=== PATIENT | male | born 1985 | race Caucasian/White ===

== ENCOUNTER 2018-10-28 08:34 | Day surgery (SDC) | payer OTHER ==
[~2018-10-28] VITALS: Ht 195.6 cm; Wt 190.5 kg
[2018-10-28] MEDS ORDERED: WATER FOR IRRIGATION,STERILE 1,000 ML IRRIG.SOLN IR ONE (10:45)
[2018-10-28] MEDS ORDERED: SEVOFLURANE 15 MIN GAS INH ONE (10:45)
[2018-10-28] MEDS ORDERED: LIDOCAINE/EPI 1% 1:100000 20 ML VIAL INJ ONE (10:45)
[2018-10-28] MEDS ORDERED: ROCURONIUM BROMIDE 10 MG/ML (ZEMURON) IV ONE (10:45)
[2018-10-28] MEDS ORDERED: MIDAZOLAM HCL 5 MG/5 ML VIAL IVP ONE (10:45)
[2018-10-28] MEDS ORDERED: fentaNYL CITRATE/PF 100 MCG/2 ML AMP IVP ONE (10:45)
[2018-10-28] MEDS ORDERED: PROPOFOL 200MG/ 20ML VIAL (DIPRIVAN) IV ONE (10:45)
[2018-10-28] MEDS ORDERED: EPINEPHrine 1 MG/ML AMP IV ONE (10:45)
[2018-10-28] MEDS ORDERED: DEXAMETHASONE SOD PHOSPHATE 4 MG/ML VIAL IVP ONE (10:45)
[2018-10-28] MEDS ORDERED: NS 1000 ML IV.SOLN IV ONE (10:45)
[2018-10-28] MEDS ORDERED: OXYMETAZOLINE HCL 0.05% NASAL SPRAY NS ONE (10:45)
[2018-10-28] MEDS ORDERED: ONDANSETRON HCL 4 MG/2 ML VIAL IVP PRN (11:45)
[2018-10-28] MEDS ORDERED: fentaNYL CITRATE/PF 100 MCG/2 ML AMP IVP PRN ×2 (11:45)
[2018-10-28] MEDS ORDERED: ONDANSETRON HCL 4 MG/2 ML VIAL ONE (14:15)
[2018-10-28 16:01] VITALS: BP_SYST 121
== END 2018-10-28 16:50 | disposition home or self-care (01) ==
LOC: SDS 08:34 → SMU 08:34 → SDS 16:50
PROVIDERS: ATTEND Otolaryngology
DX: J32.2 Chronic ethmoidal sinusitis (principal); D16.4 Benign neoplasm of bones of skull and face; D38.5 Neoplasm of uncertain behavior of other respiratory organs; J34.89 Other specified disorders of nose and nasal sinuses; E66.01 Morbid (severe) obesity due to excess calories; I10 Essential (primary) hypertension; J45.909 Unspecified asthma, uncomplicated; Z87.891 Personal history of nicotine dependence; Z79.899 Other long term (current) drug therapy
CPT/HCPCS: 30140; 30520; 31257; 31267; 31296; 88305; 88311; C1726; J0171; J1100; J2250; J2405; J2704; J3010; J7030